=== PATIENT | male | born 1985 | race Two or more races ===

== ENCOUNTER 2024-10-24 15:41 | Outpatient (RCR) | payer MEDICAID, SELFPAY ==
--- NOTE | 2024-11-05 21:56 | CTCFLWUP_ITS ---
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 REASON FOR TODAY?S VISIT: This is office follow-up visit. Mr. Stewart is here at [facility]. He is clinically doing very well. Denies any complaints. Denies any cough, chest pain, abdominal pain or leg cramps. Ambulating well. He is working full-time in the [employer]. Has good appetite and good energy levels. Malignant neoplasm of descended left testis [ICD10] C62.12 DATE OF DIAGNOSIS: 03/17/2013 STAGE/TNM: Left testicular cance r TREATMENT HISTORY: Care?Plan Start?Date Cycle Day Intent Bleomycin?30?U,?Etoposide?100?mg/m*2,?CISplatin?20?mg/m*2 05/29/2013 1 21 Curative?(adjuvant) HISTORY OF PRESENT ILLNESS: Oscar Levi is a 39-year-old Yakut-speaking male with following history. 03/17/2013: Patient had left orchiectomy for testicular mass. 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 As per Dr. Zavala's note written on 04/12/2013 patient's beta-hCG was 2009. AFP was normal at 2.2. CT scan of the abdomen and pelvis on March 16 did not show any para-aortic lymphadenopathy. 05/29/2013?06/30/2013: Patient had 2 cycles of adjuvant BEP chemotherapy. 10/28/2017: Patient had CT scan of chest abdomen and pelvis with IV contrast. It was a negative study. 09/28/2016: AFP 3.0, beta-hCG less than 1. 04/23/2017: AFP 2.3, beta-hCG less than 1. 05/17/2018: AFP 2.9, beta-hCG less than 1. 05/12/2019: AFP 2.8, beta-hCG less than 1. 05/14/2020: AFP 3.0, beta-hCG less than 1. 06/19/2021: Testicular ultrasound? 09/15/2022: AFP 3.1, beta-hCG less than 1. 09/17/2023: AFP 2.9, beta-hCG less than 1, OTHER MEDICAL HISTORY/CONDITIONS: FAMILY HISTORY: SOCIAL HISTORY: MEDICATIONS: 1. No medications reported by patient - Medications Last Reconciled by Pinky Duncan MA on 10/24/2024 ALLERGIES: No Known Drug Allergies REVIEW OF SYSTEMS: A complete 14-point review of systems was performed and is negative except as noted in interval history. PHYSICAL EXAMINATION: VITAL SIGNS: Temperature?99, B/P?129/87, Oxygen?Saturation?99% PAIN: 0 - No pain ECOG Performance Status: 0 - Asymptomatic and fully active GENERAL APPEARANCE: Appears well, in no apparent distress, appropriately interactive. HEENT: Normocephalic, no temporal wasting, normal conjunctiva, no scleral icterus, normal hearing, lips without lesions, neck normal range of motion. CARDIOVASCULAR: Not assessed. PULMONARY: Normal respiratory effort, no respiratory distress or use of accessory muscles, speaking in full sentences, no tachypnea. EXTREMITIES: No pedal edema or cyanosis. SKIN: Normal skin appearance. NEUROLOGIC: Alert and oriented x4. PSHYCHIATRIC: Appropriate affect, mood normal, behavior normal, intact thought and speech. LABORATORY DATA: I have personally reviewed and interpreted each of the patient?s relevant lab tests, abnormal findings are below: Date 07/22/15 10/26/17 ??WHITE?BLOOD?COUNT?(Thou/mm3) ? 5.1 ??RED?BLOOD?COUNT?(Miln/mm3) ? 4.80 ??HEMOGLOBIN?(gm/dl) ? 14.9 ??HEMATOCRIT?(%) ? 44.3 ??PLATELET?COUNT?(Thou/mm3) ? 152 ??NEUTROPHILS?%,?AUTO?(%) ? 64 ??LYMPH?%,?AUTO?(%) ? 27 ??NEUTROPHILS,?AUTO?(Thou/mm3) ? 3.3 ??GLUCOSE,RANDOM?(mg/dL) 99 125?H ??BLOOD?UREA?NITROGEN?(mg/dL) 14 9 ??CREATININE?(mg/dL) 1.00 0.80 ??SODIUM?(mmol/L) 139 140 ??POTASSIUM?(mmol/L) 4.6 3.6 ??CHLORIDE?(mmol/L) 103 103 ??CrCl?(CandG)?(ml/min) 109.87 135.66 ??AST/SGOT?(Unit/L) 17 25 ??ALT/SGPT?(Unit/L) 28 30 ??ALKALINE?PHOSPHATASE?(Unit/L) 68 66 ??BILIRUBIN,?TOTAL?(mg/dL) 0.3 0.4 ??PROTEIN?TOTAL?(gm/dl) 7.8 8.0 ??ALBUMIN,?SERUM?(gm/dl) 4.0 4.1 ??GLOBULIN?(gm/dl) 3.8?H 3.9?H ??ALBUMIN/GLOBULIN?RATIO 1.1?L 1.1?L ??CALCIUM,?SERUM?(mg/dL) 8.5 8.5 ??CALCIUM?SERUM?(CORRECTED)?(mg/dL) 8.5 8.5 ??LDH,?TOTAL?(Unit/L) ? 162 ASSESSMENT/PLAN: 1. Patient denies any complaints 2. AFP and beta-hCG are in the normal range 3. testicular ultrasound done 06/19/2021 showed 7 x 7 mm epididymal cyst and a small 4 mm mass in the right scrotal wall. 4. 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 No specific intervention needed. 2. I will see him back in clinic in 1 year with labs drawn prior to the visit. ORDERS: Order # Description [id number] Comprehensive Metabolic Panel - 12 + CBC with Auto Diff + AFP + bHCG - Quant (TM) + Uric Acid, Serum [id number] Lactate Dehydrogenase (LDH) [id number] Testosterone; Total [id number] Follow Up 1 Year RETURN TO CLINIC: I reviewed the diagnosis, prognosis, and recommended treatment/procedure options with the patient (and/or their legal sales representative education courses), including the potential benefits, risks, side effects and alternative therapies. We also discussed the option of no treatment and the possibility of clinical trial participation, if applicable. All questions were addressed, and they demonstrated understanding. They provided informed consent to proceed with the proposed plan of care. BILLING AND COMPLIANCE: I reviewed external records from providers outside my specialty as summarized above. I spent a total of 50 minutes on this patient?s care on the day of their visit excluding time spent related to any billed procedures. This time includes time spent with the patient as well as time spent documenting in the medical record, reviewing patients records and tests, obtaining history, placing orders, communicating with other healthcare professionals, counseling the patient, family or caregiver, and/or care coordination for the diagnoses above. Electronically Signed by: {Object.Sanct_ID*PnP.NameFL@M}, {Object.Sanct_ID*PnP.Suffix@U} D: {Object.Sanct_Date} T: {Object.Sanct_Time} CC: David?Magalie,?, Marisel?Family?Health?Care,? PCP: Markos Rush Referring: Markos Rush This document was completed utilizing speech recognition software. Grammatical errors, random word insertions, pronoun errors, and incomplete sentences are an occasional consequence of this system due to software limitations, ambient noise, and hardware issues. Any formal questions or concerns about the content, text or information contained within the body of this dictation should be directly addressed to the provider for clarification.
== END 2024-10-26 23:59 | disposition home or self-care (01) ==
LOC: SCTC 15:41
PROVIDERS: PCP Family Medicine; Referring Provider Family Medicine; Visit Provider Internal Medicine Hematology & Oncology
DX: Z08 Encounter for follow-up examination after completed treatment for malignant neoplasm (principal); Z85.47 Personal history of malignant neoplasm of testis; N50.3 Cyst of epididymis; N50.89 Other specified disorders of the male genital organs
CPT/HCPCS: 99213; G0463